=== PATIENT | female | born 1985 | race Caucasian/White ===

== ENCOUNTER 2018-08-31 02:16 | Emergency (ER) | payer SELFPAY ==
[~2018-08-31] VITALS: Ht 160 cm; Wt 73.0 kg
[2018-08-31] MEDS ORDERED: ACETAMINOPHEN 325MG TABLET PO ONE (03:15)
[2018-08-31 05:25] VITALS: BP 111/64
== END 2018-08-31 06:17 | disposition home or self-care (01) ==
LOC: ER 02:42
DX: S06.899A Other specified intracranial injury with loss of consciousness of unspecified duration, initial encounter (principal); M54.2 Cervicalgia; Y00.XXXA Assault by blunt object, initial encounter; Y93.89 Activity, other specified; Y92.89 Other specified places as the place of occurrence of the external cause
CPT/HCPCS: 70450; 72125; 81025; 99284; Z7610